=== PATIENT | male | born 1965 | race African-American/Black ===

== ENCOUNTER 2022-04-14 06:10 | Inpatient (IN) | payer MEDICAID, MEDICARE, OTHER ==
[2022-04-14] MEDS ORDERED: Magnesium 2 GM/50 ML BAG (IN WATER) ONE (06:27)
[2022-04-14] MEDS ORDERED: Albuterol Sulfate 1.25 MG/3 ML NEB ONE ×2 (06:31→06:37)
[2022-04-14] MEDS ORDERED: Albuterol Sulfate 2.5 mg/3 ml Neb ONE (06:52)
[2022-04-14 07:06] LABS: Actual Bicarbonate (HCO3a) 27.1 mEq/L (22-28); Analyzer IN Cardio ER; Base Excess (BEa) -2.7 mEq/L (-2.0 to +3.0); Calcium, Ionized (arterial) 1.24 mmol/L (1.12-1.30); Hemoglobin (Hb) 15.9 g/dL (14.0-18.0); Potassium - ABG Lab 4.11 mmol/L (3.70-5.30); pH, Arterial 7.21 (7.35-7.45)
[2022-04-14 07:08] LABS: Puncture Site RRA
[2022-04-14] MEDS ORDERED: Azithromycin 500 MG VIAL ONE (07:12)
[2022-04-14] MEDS ORDERED: cefTRIAXone\\ROCEPHIN 2 GM VIAL ONE (07:12)
[2022-04-14 07:49] LABS: SARS-CoV-2 NAA Rapid Test Not Detected (NotDetected)
[2022-04-14 08:47] LABS: Bilirubin Negative (Negative); Blood, Urine Negative (Negative); Clarity Clear (Clear); Glucose, Urine (Dipstick) Greater than 1000 mg/dL (Negative); Ketone, Urine Negative (Negative); Leukocyte Negative Leu/uL (Negative); Nitrite Negative (Negative); Protein, Urine (Dipstick) Negative (Neg-Trace); Specific Gravity, Urine 1.017 (1.002-1.036); Urobilinogen Normal mg/dL (Less than 2)
[2022-04-14 08:52] LABS: #Eosinphils 0.1 thou/uL (0.0-0.7); #Lymphocytes 1.6 thou/uL (1.20-3.40); #Monocytes 0.9 thou/uL (0.11-0.59); #Neutrophils 9.3 thou/uL (1.40-6.50); %Basophils 0.2 % (0.0-1.0); %Eosinophils 1.1 % (0.0-10.0); %Lymphocytes 13.5 % (21.0-51.0); %Monocytes 7.2 % (0.0-10.0); %Neutrophils 78.1 % (42.0-75.0); Mean Corpuscular HGB CONC 31.7 g/dL (32.0-36.0); Mean Corpuscular Hemoglobin 29.6 pg (27.0-31.0); Mean Corpuscular Volume 93.4 fl (78.0-98.0); Mean Platelet Volume 9.4 fL (7.4-10.4); Platelet Count 305 10x3/uL (130-400); RBC Distribution Width 12.6 % (11.5-14.5); Red Blood Cell (RBC) Count 5.41 mill/uL (4.70-6.10); White Blood Cell (WBC) Count 11.9 10x3/uL (4.8-10.8)
[2022-04-14] MEDS ORDERED: Ondansetron PF 4 MG/2 ML Vial IVP PRN (09:02)
[2022-04-14] MEDS ORDERED: Senokot S 8.6-50 MG TAB PO PRN (09:02)
[2022-04-14] MEDS ORDERED: Lorazepam 2 MG/ML VIAL IM PRN (10:11)
[2022-04-14] MEDS ORDERED: Ondansetron ODT 4 MG TAB PO PRN (10:11)
[2022-04-14] MEDS ORDERED: Lorazepam 1 MG TAB PO PRN (10:11)
[2022-04-14] MEDS ORDERED: Electrolyte Replacement Protocol FS SCH (10:15)
[2022-04-14 10:30] LABS: ALT (SGPT) 62 U/L (8-55); AST (SGOT) 46 U/L (5-34); Albumin 4.2 g/dL (3.5-5.0); Alkaline Phosphatase 77 U/L (40-110); Anion Gap 16 mmol/L (10-20); BUN (Urea Nitrogen) 13 mg/dL (8.4-25.7); Bilirubin, Total 0.2 mg/dL (0.2-1.2); Calc. Creatinine Clearance 0 mL/min (70-130); Calcium 9.3 mg/dL (7.8-10.44); Carbon Dioxide 23 mmol/L (22-29); Chloride 107 mmol/L (98-107); Estimated GFR 111; Globulin 2.9 g/dL (2.4-3.5); Glucose 200 mg/dL (70-105); Potassium 4.2 mmol/L (3.5-5.1); Protein, Total 7.1 g/dL (6.0-8.3); Sodium 142 mmol/L (136-145)
[2022-04-14 11:10] LABS: Bilirubin, Direct 0.1 mg/dL (0.1-0.3); Magnesium 2.9 mg/dL (1.6-2.6); Phosphorus 3.3 mg/dL (2.3-4.7)
[2022-04-14] MEDS ORDERED: Hydrochlorothiazide 25 MG TAB PO SCH (11:15)
[2022-04-14 11:25] LABS: #Lymphocytes 0.3 thou/uL (1.20-3.40); #Monocytes 0.2 thou/uL (0.11-0.59); #Neutrophils 11.2 thou/uL (1.40-6.50); %Basophils 0.1 % (0.0-1.0); %Eosinophils 0.2 % (0.0-10.0); %Lymphocytes 2.9 % (21.0-51.0); %Monocytes 1.8 % (0.0-10.0); %Neutrophils 95.1 % (42.0-75.0); Hemoglobin 15.9 g/dL (14.0-18.0); Mean Corpuscular Hemoglobin 28.4 pg (27.0-31.0); Mean Corpuscular Volume 94.7 fl (78.0-98.0); Mean Platelet Volume 6.8 fL (7.4-10.4); Platelet Count 257 10x3/uL (130-400); RBC Distribution Width 11.7 % (11.5-14.5); Red Blood Cell (RBC) Count 5.61 mill/uL (4.70-6.10); White Blood Cell (WBC) Count 11.8 10x3/uL (4.8-10.8)
[2022-04-14 11:40] LABS: Lactic Acid 3.8 mmol/L (0.5-2.2)
[2022-04-14] MEDS ORDERED: methylPREDNISolone Sod Succ/PF 125 MG/2 ML VIAL IVP SCH (12:45)
[2022-04-14] MEDS: Nicotine 21 MG PATCH TD SCH (12:51)
[2022-04-14] MEDS: Thiamine HCl 200 MG/2 ML VIAL SLOW IVP SCH (12:51)
[2022-04-14 12:59] LABS: Amphetamine Not Detected (NotDetected); Barbiturates Screen Not Detected (NotDetected); Benzodiazepine Screen Not Detected (NotDetected); Cocaine Metabolite Screen Not Detected (NotDetected); Methadone Not Detected (NotDetected); Methamphetamine Not Detected (NotDetected); Opiate Screen Detected (NotDetected); Oxycodone Screen Not Detected (NotDetected); Phencyclidine (PCP) Not Detected (NotDetected); THC/Cannabinoid Screen Detected (NotDetected); Tricyclic Screen Not Detected (NotDetected)
[2022-04-14 13:08] LABS: Actual Bicarbonate (HCO3v) 23 mEq/L (22-28); Base Excess -5.3 mEq/L (-2.0 to +3.0); Chloride (VBG) 111 mmol/L (98-106); Hemoglobin (Hb) 15.9 g/dL (13.1-17.2); Potassium (VBG) 4.68 mmol/L (3.70-5.30); Sodium 144.1 mmol/L (133-146); pH (venous) 7.22 (7.32-7.43)
[2022-04-14 14:54] LABS: Syphilis Antibody Nonreactive (Nonreactive); Syphilis Antibody Index 0.04 S/CO (<1.00 Non-Reactive)
[2022-04-14] MEDS: methylPREDNISolone Sod Succ/PF 125 MG/2 ML VIAL IVP SCH (17:09)
[2022-04-14 17:50] LABS: Hemoglobin A1c 6.2 % (4.0-6.0)
[2022-04-15] MEDS: methylPREDNISolone Sod Succ/PF 125 MG/2 ML VIAL IVP SCH ×4 (00:08→18:44)
[2022-04-15] MEDS ORDERED: Rocuronium Bromide 10 MG/ML (10ML VIAL) ONE (01:20)
[2022-04-15 01:41] LABS: Actual Bicarbonate (HCO3a) 37.8 mEq/L (22-28); Base Excess (BEa) 5.9 mEq/L (-2.0 to +3.0); Calcium, Ionized (arterial) 1.28 mmol/L (1.12-1.30); Carboxyhemoglobin (COHb) 1.3 gm% (0.0-3.0); O2 Tension (PaO2), arterial 74.5 mmHg (80.0-100.0); Potassium - ABG Lab 4.44 mmol/L (3.70-5.30); pH, Arterial 7.22 (7.35-7.45)
[2022-04-15 01:44] LABS: ALV-art Gradient 93.075 mmHg (0-20); CO2 Tension 94.1 mmHg (35.0-45.0); Puncture Site L BRA
[2022-04-15] MEDS ORDERED: Magnesium 2 GM/50 ML(in water) 2 GM in Premix Bag 1 BAG IVPB SCH (01:45)
[2022-04-15] MEDS ORDERED: Sodium Bicarb 50 MEQ/50 ML VIAL ONE (02:17)
[2022-04-15] MEDS ORDERED: Propofol 1,000 MG/100 ML VIAL IV ONE (02:28)
[2022-04-15] MEDS ORDERED: Sodium Bicarb 50 MEQ/50 ML VIAL IVP SCH ×2 (02:30→02:45)
[2022-04-15] MEDS ORDERED: Ventilator Sedation Protocol 1 EACH FS SCH (02:35)
[2022-04-15] MEDS ORDERED: Rocuronium Bromide 10 MG/ML (10ML VIAL) IVP SCH (02:45)
[2022-04-15 02:49] LABS: #Lymphocytes 0.6 thou/uL (1.20-3.40); #Monocytes 0.6 thou/uL (0.11-0.59); #Neutrophils 9.6 thou/uL (1.40-6.50); %Basophils 0.1 % (0.0-1.0); %Eosinophils 0.2 % (0.0-10.0); %Lymphocytes 5.6 % (21.0-51.0); %Monocytes 5.2 % (0.0-10.0); Hemoglobin 15.6 g/dL (14.0-18.0); Mean Corpuscular HGB CONC 31.1 g/dL (32.0-36.0); Mean Corpuscular Hemoglobin 29.5 pg (27.0-31.0); Mean Corpuscular Volume 94.7 fl (78.0-98.0); Platelet Count 238 10x3/uL (130-400); RBC Distribution Width 11.7 % (11.5-14.5); Red Blood Cell (RBC) Count 5.31 mill/uL (4.70-6.10); White Blood Cell (WBC) Count 10.7 10x3/uL (4.8-10.8)
[2022-04-15 03:23] LABS: Actual Bicarbonate (HCO3a) 37.7 mEq/L (22-28); Base Excess (BEa) 8.6 mEq/L (-2.0 to +3.0); Calcium, Ionized (arterial) 1.23 mmol/L (1.12-1.30); Carboxyhemoglobin (COHb) 1.1 gm% (0.0-3.0); Hemoglobin (Hb) 15.7 g/dL (14.0-18.0); Potassium - ABG Lab 4.08 mmol/L (3.70-5.30); pH, Arterial 7.34 (7.35-7.45)
[2022-04-15 03:24] LABS: ALT (SGPT) 62 U/L (8-55); AST (SGOT) 41 U/L (5-34); Albumin 4.3 g/dL (3.5-5.0); Alkaline Phosphatase 80 U/L (40-110); Anion Gap 17 mmol/L (10-20); BUN (Urea Nitrogen) 10 mg/dL (8.4-25.7); Bilirubin, Total 0.4 mg/dL (0.2-1.2); Calc. Creatinine Clearance 144 mL/min (70-130); Carbon Dioxide 29 mmol/L (22-29); Chloride 101 mmol/L (98-107); Estimated GFR 112; Globulin 3.2 g/dL (2.4-3.5); Glucose 144 mg/dL (70-105); Potassium 4.6 mmol/L (3.5-5.1); Protein, Total 7.5 g/dL (6.0-8.3); Sodium 142 mmol/L (136-145)
[2022-04-15 03:26] LABS: CO2 Tension 71.6 mmHg (35.0-45.0)
[2022-04-15] MEDS: Fentanyl CADD 100 ML IV SCH ×2 (03:27→17:48)
[2022-04-15 03:28] LABS: Puncture Site LRA
[2022-04-15] MEDS ORDERED: Propofol BOLUS 1,000 MG/100 ML VIAL IV PRN (03:30)
[2022-04-15] MEDS ORDERED: DISCONTINUE PREVIOUS NARCOTIC PAIN MEDICATIONS AND BENZODIAZEPINES FS SCH (03:30)
[2022-04-15] MEDS ORDERED: Fentanyl BOLUS 250 ML IVPB PRN (03:30)
[2022-04-15] MEDS ORDERED: Morphine 4 MG/ML VIAL SLOW IVP PRN (03:30)
[2022-04-15] MEDS: cefTRIAXone\\ROCEPHIN 1 GM in Sodium Chloride 0.9% 100 ML IVPB SCH (06:42)
[2022-04-15] MEDS ORDERED: Lactated Ringer's 500 ML IV SCH ×2 (08:00→14:00)
[2022-04-15] MEDS: Multivit, Therapeutic 1 TAB PO SCH (08:58)
[2022-04-15] MEDS: Folic Acid 1 MG TAB PO SCH (08:58)
[2022-04-15] MEDS: Pantoprazole 40 MG VIAL IVP SCH (08:59)
[2022-04-15] MEDS: Enoxaparin Sodium 40 MG/0.4 ML SYRINGE SC SCH (08:59)
[2022-04-15] MEDS ORDERED: FLU VACC QS2022-23(6MOS UP)/PF 60 MCG/0.5 ML SYRINGE IM ONE (09:00)
[2022-04-15] MEDS ORDERED: predniSONE 20 MG TAB PO SCH (09:00)
[2022-04-15] MEDS ORDERED: Lorazepam 1 MG TAB PO PRN (10:11)
[2022-04-15] MEDS: Hydrochlorothiazide 25 MG TAB PO SCH (10:21)
[2022-04-15 11:07] LABS: Actual Bicarbonate (HCO3a) 37.6 mEq/L (22-28); Base Excess (BEa) 9.9 mEq/L (-2.0 to +3.0); Calcium, Ionized (arterial) 1.23 mmol/L (1.12-1.30); Carboxyhemoglobin (COHb) 1.2 gm% (0.0-3.0); Hemoglobin (Hb) 15.5 g/dL (14.0-18.0)
[2022-04-15 11:14] LABS: CO2 Tension 62.8 mmHg (35.0-45.0)
[2022-04-15 11:15] LABS: O2 Tension (PaO2), arterial 58.4 mmHg (80.0-100.0); Puncture Site RRA
[2022-04-15] MEDS: Dextrose 5%-Lactated Ringers 1,000 ML IV SCH ×3 (11:59→22:10)
[2022-04-15] MEDS: Azithromycin 500 MG in Sodium Chloride 0.9% 250 ML 250 ML IVPB SCH (12:04)
[2022-04-15] MEDS: Thiamine HCl 200 MG/2 ML VIAL SLOW IVP SCH (12:04)
[2022-04-15] MEDS: Nicotine 21 MG PATCH TD SCH (12:05)
[2022-04-15] MEDS: Propofol 1,000 MG/100 ML VIAL IV PRN ×2 (12:18→21:49)
[2022-04-15] MEDS ORDERED: Hydrochlorothiazide 25 MG TAB PO SCH (14:00)
[2022-04-15] MEDS ORDERED: Fentanyl CADD 100 ML ONE (17:46)
[2022-04-15] MEDS: Mometasone 100 MCG/Formoterol 5 MCG 120 PUFF INHALER INH SCH (18:11)
[2022-04-15] MEDS: Midazolam HCl 2 mg/2 ml Vial SLOW IVP PRN ×2 (18:43→23:40)
[2022-04-15] MEDS: methylPREDNISolone Sod Succ 40 MG VIAL IVP SCH ×2 (18:43→23:59)
[2022-04-16 05:11] LABS: #Lymphocytes 0.5 thou/uL (1.20-3.40); #Monocytes 0.6 thou/uL (0.11-0.59); #Neutrophils 7.2 thou/uL (1.40-6.50); %Eosinophils 0.2 % (0.0-10.0); %Lymphocytes 5.7 % (21.0-51.0); %Monocytes 7.5 % (0.0-10.0); %Neutrophils 86.7 % (42.0-75.0); Hemoglobin 13.7 g/dL (14.0-18.0); Mean Corpuscular HGB CONC 31.4 g/dL (32.0-36.0); Mean Corpuscular Hemoglobin 29.5 pg (27.0-31.0); Mean Corpuscular Volume 94.1 fl (78.0-98.0); Mean Platelet Volume 7.2 fL (7.4-10.4); Platelet Count 209 10x3/uL (130-400); RBC Distribution Width 11.8 % (11.5-14.5); Red Blood Cell (RBC) Count 4.63 mill/uL (4.70-6.10); White Blood Cell (WBC) Count 8.3 10x3/uL (4.8-10.8)
[2022-04-16 05:28] LABS: ALT (SGPT) 42 U/L (8-55); AST (SGOT) 16 U/L (5-34); Albumin 3.7 g/dL (3.5-5.0); Alkaline Phosphatase 61 U/L (40-110); Anion Gap 7 mmol/L (10-20); BUN (Urea Nitrogen) 16 mg/dL (8.4-25.7); Bilirubin, Total 0.3 mg/dL (0.2-1.2); Calc. Creatinine Clearance 152 mL/min (70-130); Calcium 9.5 mg/dL (7.8-10.44); Carbon Dioxide 37 mmol/L (22-29); Chloride 98 mmol/L (98-107); Estimated GFR 118; Globulin 2.5 g/dL (2.4-3.5); Glucose 178 mg/dL (70-105); Potassium 4.2 mmol/L (3.5-5.1); Protein, Total 6.2 g/dL (6.0-8.3); Sodium 138 mmol/L (136-145)
[2022-04-16] MEDS: cefTRIAXone\\ROCEPHIN 1 GM in Sodium Chloride 0.9% 100 ML IVPB SCH (06:08)
[2022-04-16] MEDS: methylPREDNISolone Sod Succ 40 MG VIAL IVP SCH ×3 (06:08→18:11)
[2022-04-16] MEDS: Mometasone 100 MCG/Formoterol 5 MCG 120 PUFF INHALER INH SCH ×2 (07:25→18:13)
[2022-04-16] MEDS ORDERED: Fentanyl CADD 100 ML ONE (08:26)
[2022-04-16] MEDS: Propofol 1,000 MG/100 ML VIAL IV PRN ×2 (08:33→18:11)
[2022-04-16] MEDS: Dextrose 5%-Lactated Ringers 1,000 ML IV SCH (08:33)
[2022-04-16] MEDS: Fentanyl CADD 100 ML IV SCH (08:34)
[2022-04-16] MEDS: Azithromycin 500 MG in Sodium Chloride 0.9% 250 ML 250 ML IVPB SCH (09:49)
[2022-04-16] MEDS: Folic Acid 1 MG TAB PO SCH (09:50)
[2022-04-16] MEDS: Enoxaparin Sodium 40 MG/0.4 ML SYRINGE SC SCH (09:50)
[2022-04-16] MEDS: Multivit, Therapeutic 1 TAB PO SCH (09:50)
[2022-04-16] MEDS: Hydrochlorothiazide 25 MG TAB PO SCH (09:51)
[2022-04-16] MEDS: Pantoprazole 40 MG VIAL IVP SCH (09:51)
[2022-04-16] MEDS ORDERED: Lorazepam 1 MG TAB PO PRN (10:11)
[2022-04-16] MEDS ORDERED: cefTRIAXone\\ROCEPHIN 1 GM in Sodium Chloride 0.9% 100 ML IVPB SCH (11:00)
[2022-04-16] MEDS ORDERED: Amlodipine 5 MG TAB PO SCH (12:15)
[2022-04-16] MEDS: Thiamine HCl 200 MG/2 ML VIAL SLOW IVP SCH (12:59)
[2022-04-16] MEDS: Nicotine 21 MG PATCH TD SCH (12:59)
[2022-04-16] MEDS ORDERED: Dextrose 5%-Lactated Ringers 1,000 ML IV SCH (17:42)
[2022-04-17] MEDS: Propofol 1,000 MG/100 ML VIAL IV PRN ×4 (01:59→20:10)
[2022-04-17] MEDS: methylPREDNISolone Sod Succ 40 MG VIAL IVP SCH ×4 (02:00→18:19)
[2022-04-17 04:09] LABS: #Lymphocytes 0.5 thou/uL (1.20-3.40); #Monocytes 0.5 thou/uL (0.11-0.59); #Neutrophils 6.3 thou/uL (1.40-6.50); %Eosinophils 0.3 % (0.0-10.0); %Lymphocytes 6.3 % (21.0-51.0); %Monocytes 6.9 % (0.0-10.0); %Neutrophils 86.4 % (42.0-75.0); Hemoglobin 12.9 g/dL (14.0-18.0); Mean Corpuscular HGB CONC 31.9 g/dL (32.0-36.0); Mean Corpuscular Volume 94.2 fl (78.0-98.0); Mean Platelet Volume 7.1 fL (7.4-10.4); Platelet Count 192 10x3/uL (130-400); RBC Distribution Width 11.4 % (11.5-14.5); Red Blood Cell (RBC) Count 4.28 mill/uL (4.70-6.10); White Blood Cell (WBC) Count 7.2 10x3/uL (4.8-10.8)
[2022-04-17 04:34] LABS: ALT (SGPT) 33 U/L (8-55); AST (SGOT) 12 U/L (5-34); Albumin 3.1 g/dL (3.5-5.0); Alkaline Phosphatase 50 U/L (40-110); BUN (Urea Nitrogen) 12 mg/dL (8.4-25.7); Bilirubin, Total 0.2 mg/dL (0.2-1.2); Calc. Creatinine Clearance 157 mL/min (70-130); Calcium 9.3 mg/dL (7.8-10.44); Estimated GFR 118; Globulin 2.1 g/dL (2.4-3.5); Glucose 194 mg/dL (70-105); Protein, Total 5.2 g/dL (6.0-8.3)
[2022-04-17 04:43] LABS: Anion Gap 13 mmol/L (10-20); Carbon Dioxide 33 mmol/L (22-29); Chloride 99 mmol/L (98-107); Sodium 141 mmol/L (136-145)
[2022-04-17] MEDS ORDERED: Dextrose 50% Abboject 50 ML SYRINGE SLOW IVP PRN (06:45)
[2022-04-17] MEDS ORDERED: HumaLOG 300 UNITS/3 ML VIAL SC PRN (06:45)
[2022-04-17] MEDS: Fentanyl CADD 100 ML IV SCH (06:45)
[2022-04-17] MEDS ORDERED: Dextrose 5% in Water 1,000 ML IV PRN (06:45)
[2022-04-17] MEDS: cefTRIAXone\\ROCEPHIN 1 GM in Sodium Chloride 0.9% 100 ML IVPB SCH (06:46)
[2022-04-17] MEDS: Mometasone 100 MCG/Formoterol 5 MCG 120 PUFF INHALER INH SCH ×2 (06:52→18:27)
[2022-04-17] MEDS: HumaLOG 300 UNITS/3 ML VIAL SC PRN ×2 (08:41→21:22)
[2022-04-17] MEDS: Albuterol Sulfate 2.5 mg/3 ml Neb NEB SCH ×9 (09:00→23:23)
[2022-04-17] MEDS ORDERED: VANCOMYCIN 1.25 GM/250 ML BAG IVPB SCH (09:00)
[2022-04-17] MEDS ORDERED: VANCOMYCIN IVPB PRN (09:07)
[2022-04-17] MEDS ORDERED: Furosemide 20 MG/2 ML VIAL SLOW IVP SCH (09:15)
[2022-04-17] MEDS ORDERED: Lorazepam 0.5 MG TAB PO PRN (10:11)
[2022-04-17] MEDS: Vancomycin 1.5 GRAM/300 ML BAG 1.5 GM in Premix Bag 1 BAG IVPB SCH ×2 (11:40→21:24)
[2022-04-17] MEDS: Pantoprazole 40 MG VIAL IVP SCH (11:43)
[2022-04-17] MEDS: Amlodipine 5 MG TAB PO SCH (11:44)
[2022-04-17] MEDS: Multivit, Therapeutic 1 TAB PO SCH (11:44)
[2022-04-17] MEDS: Enoxaparin Sodium 40 MG/0.4 ML SYRINGE SC SCH (11:51)
[2022-04-17] MEDS: Hydrochlorothiazide 25 MG TAB PO SCH (11:51)
[2022-04-17] MEDS: Folic Acid 1 MG TAB PO SCH (11:51)
[2022-04-17] MEDS: Thiamine 100 MG TAB PO SCH (11:52)
[2022-04-17] MEDS: Nicotine 21 MG PATCH TD SCH (11:54)
[2022-04-17] MEDS: Ipratropium Bromide 2.5 ml Neb NEB SCH ×3 (12:47→23:23)
[2022-04-17] MEDS: Azithromycin 500 MG in Sodium Chloride 0.9% 250 ML 250 ML IVPB SCH (13:03)
[2022-04-18] MEDS: methylPREDNISolone Sod Succ 40 MG VIAL IVP SCH ×4 (00:08→21:49)
[2022-04-18] MEDS: Fentanyl CADD 100 ML IV SCH (00:08)
[2022-04-18] MEDS: Albuterol Sulfate 2.5 mg/3 ml Neb NEB SCH ×11 (02:00→23:16)
[2022-04-18] MEDS: Propofol 1,000 MG/100 ML VIAL IV PRN (02:01)
[2022-04-18] MEDS: HumaLOG 300 UNITS/3 ML VIAL SC PRN (03:43)
[2022-04-18 04:13] LABS: #Lymphocytes 0.3 thou/uL (1.20-3.40); #Monocytes 0.5 thou/uL (0.11-0.59); #Neutrophils 6.5 thou/uL (1.40-6.50); %Eosinophils 0.4 % (0.0-10.0); %Lymphocytes 4.2 % (21.0-51.0); %Monocytes 7.3 % (0.0-10.0); %Neutrophils 88.1 % (42.0-75.0); Mean Corpuscular HGB CONC 30.4 g/dL (32.0-36.0); Mean Corpuscular Hemoglobin 29.1 pg (27.0-31.0); Mean Corpuscular Volume 95.6 fl (78.0-98.0); Mean Platelet Volume 7.3 fL (7.4-10.4); Platelet Count 207 10x3/uL (130-400); RBC Distribution Width 11.3 % (11.5-14.5); Red Blood Cell (RBC) Count 4.47 mill/uL (4.70-6.10); White Blood Cell (WBC) Count 7.4 10x3/uL (4.8-10.8)
[2022-04-18 04:34] LABS: ALT (SGPT) 61 U/L (8-55); AST (SGOT) 28 U/L (5-34); Alkaline Phosphatase 60 U/L (40-110); BUN (Urea Nitrogen) 19 mg/dL (8.4-25.7); Bilirubin, Total 0.2 mg/dL (0.2-1.2); Calc. Creatinine Clearance 165 mL/min (70-130); Calcium 9.2 mg/dL (7.8-10.44); Estimated GFR 117; Globulin 2.2 g/dL (2.4-3.5); Glucose 188 mg/dL (70-105); Protein, Total 5.2 g/dL (6.0-8.3)
[2022-04-18 04:44] LABS: Anion Gap 13 mmol/L (10-20); Carbon Dioxide 37 mmol/L (22-29); Chloride 93 mmol/L (98-107); Potassium 4.2 mmol/L (3.5-5.1); Sodium 139 mmol/L (136-145)
[2022-04-18] MEDS: cefTRIAXone\\ROCEPHIN 1 GM in Sodium Chloride 0.9% 100 ML IVPB SCH (05:08)
[2022-04-18] MEDS: Mometasone 100 MCG/Formoterol 5 MCG 120 PUFF INHALER INH SCH ×2 (07:14→18:35)
[2022-04-18] MEDS: Ipratropium Bromide 2.5 ml Neb NEB SCH (07:15)
[2022-04-18] MEDS ORDERED: Furosemide 20 MG/2 ML VIAL SLOW IVP SCH (08:15)
[2022-04-18] MEDS ORDERED: Labetalol HCl 100 MG/20 ML VIAL ONE (08:53)
[2022-04-18] MEDS: Labetalol HCl 100 MG/20 ML VIAL SLOW IVP PRN (08:55)
[2022-04-18] MEDS: Amlodipine 5 MG TAB PO SCH (09:26)
[2022-04-18] MEDS: Folic Acid 1 MG TAB PO SCH (09:26)
[2022-04-18] MEDS: Hydrochlorothiazide 25 MG TAB PO SCH (09:27)
[2022-04-18] MEDS: Multivit, Therapeutic 1 TAB PO SCH (09:27)
[2022-04-18] MEDS: Pantoprazole 40 MG VIAL IVP SCH (09:27)
[2022-04-18] MEDS: Enoxaparin Sodium 40 MG/0.4 ML SYRINGE SC SCH (09:35)
[2022-04-18] MEDS: Vancomycin 1.5 GRAM/300 ML BAG 1.5 GM in Premix Bag 1 BAG IVPB SCH (09:56)
[2022-04-18 10:45] LABS: Base Excess 16.9 mEq/L (-2.0 to +3.0); Calcium, Ionized (venous) 1.27 mmol/L (1.16-1.32); Chloride (VBG) 90 mmol/L (98-106); Hemoglobin (Hb) 14.8 g/dL (13.1-17.2); Potassium (VBG) 4.52 mmol/L (3.70-5.30); Sodium 136.6 mmol/L (133-146); pH (venous) 7.38 (7.32-7.43)
[2022-04-18 11:28] LABS: Actual Bicarbonate (HCO3v) 47 mEq/L (22-28)
[2022-04-18] MEDS: Nicotine 21 MG PATCH TD SCH (12:26)
[2022-04-18] MEDS: Thiamine 100 MG TAB PO SCH (13:47)
[2022-04-18] MEDS ORDERED: NOREPINEPHRINE 8 MG/250 ML-D5W 250 ML ONE (19:36)
[2022-04-18 20:42] LABS: Vancomycin, Trough 10.7 ug/mL
[2022-04-18] MEDS: VANCOMYCIN 1.25 GM/250 ML BAG 1.25 GM in Premix Bag 1 BAG IVPB SCH (21:41)
[2022-04-19] MEDS: Labetalol HCl 100 MG/20 ML VIAL SLOW IVP PRN ×2 (00:30→08:40)
[2022-04-19] MEDS ORDERED: Rocuronium Bromide 10 MG/ML (10ML VIAL) ONE (00:46)
[2022-04-19] MEDS ORDERED: Sodium Bicarb 50 MEQ/50 ML Abboject 8.4% SYRINGE ONE (00:46)
[2022-04-19] MEDS ORDERED: EPINEPHrine 1 MG/10 ML Abboject SYRINGE ONE (00:46)
[2022-04-19 01:15] LABS: #Basophils 0.1 thou/uL (0.0-0.2); #Lymphocytes 0.7 thou/uL (1.20-3.40); #Monocytes 0.9 thou/uL (0.11-0.59); #Neutrophils 8.2 thou/uL (1.40-6.50); %Basophils 0.6 % (0.0-1.0); %Eosinophils 0.4 % (0.0-10.0); %Lymphocytes 7.6 % (21.0-51.0); %Monocytes 8.6 % (0.0-10.0); %Neutrophils 82.9 % (42.0-75.0); Hemoglobin 14.5 g/dL (14.0-18.0); Mean Corpuscular HGB CONC 30.8 g/dL (32.0-36.0); Mean Corpuscular Hemoglobin 29.2 pg (27.0-31.0); Mean Corpuscular Volume 94.8 fl (78.0-98.0); Mean Platelet Volume 7.2 fL (7.4-10.4); Platelet Count 222 10x3/uL (130-400); RBC Distribution Width 11.4 % (11.5-14.5); Red Blood Cell (RBC) Count 4.96 mill/uL (4.70-6.10); White Blood Cell (WBC) Count 9.8 10x3/uL (4.8-10.8)
[2022-04-19] MEDS: Albuterol Sulfate 2.5 mg/3 ml Neb NEB SCH ×12 (01:29→23:24)
[2022-04-19] MEDS ORDERED: Midazolam HCl 2 mg/2 ml Vial SLOW IVP PRN (01:35)
[2022-04-19 01:39] LABS: ALT (SGPT) 220 U/L (8-55); AST (SGOT) 121 U/L (5-34); Albumin 3.2 g/dL (3.5-5.0); Alkaline Phosphatase 72 U/L (40-110); Anion Gap 20 mmol/L (10-20); BUN (Urea Nitrogen) 19 mg/dL (8.4-25.7); Bilirubin, Total 0.4 mg/dL (0.2-1.2); Calc. Creatinine Clearance 147 mL/min (70-130); Calcium 9.4 mg/dL (7.8-10.44); Carbon Dioxide 29 mmol/L (22-29); Chloride 91 mmol/L (98-107); Estimated GFR 113; Globulin 2.7 g/dL (2.4-3.5); Glucose 205 mg/dL (70-105); Magnesium 2.5 mg/dL (1.6-2.6); Phosphorus 5.4 mg/dL (2.3-4.7); Potassium 4.5 mmol/L (3.5-5.1); Protein, Total 5.9 g/dL (6.0-8.3); Sodium 135 mmol/L (136-145)
[2022-04-19 01:40] LABS: Troponin I 0.011 ng/mL (< 0.028)
[2022-04-19] MEDS: Vancomycin 1.5 GRAM/300 ML BAG 1.5 GM in Premix Bag 1 BAG IVPB SCH (01:42)
[2022-04-19] MEDS ORDERED: Propofol BOLUS 1,000 MG/100 ML VIAL IV PRN (01:45)
[2022-04-19] MEDS ORDERED: Morphine 4 MG/ML VIAL SLOW IVP PRN (01:45)
[2022-04-19] MEDS ORDERED: DISCONTINUE PREVIOUS NARCOTIC PAIN MEDICATIONS AND BENZODIAZEPINES FS SCH (01:45)
[2022-04-19] MEDS ORDERED: Fentanyl BOLUS 250 ML IVPB PRN (01:45)
[2022-04-19 01:50] LABS: Actual Bicarbonate (HCO3a) 42.5 mEq/L (22-28); Calcium, Ionized (arterial) 1.29 mmol/L (1.12-1.30); Carboxyhemoglobin (COHb) 0.8 gm% (0.0-3.0); Hemoglobin (Hb) 14.8 g/dL (14.0-18.0); O2 Tension (PaO2), arterial 125.7 mmHg (80.0-100.0); Potassium - ABG Lab 4.33 mmol/L (3.70-5.30); pH, Arterial 7.35 (7.35-7.45)
[2022-04-19 01:52] LABS: CO2 Tension 78.2 mmHg (35.0-45.0); Puncture Site R RAD
[2022-04-19] MEDS: Propofol 1,000 MG/100 ML VIAL IV PRN ×3 (01:54→23:26)
[2022-04-19] MEDS: Fentanyl CADD 100 ML IV SCH ×2 (02:02→20:27)
[2022-04-19] MEDS ORDERED: Sodium Chloride 0.9% 500 ML IV SCH (03:30)
[2022-04-19 05:24] LABS: #Lymphocytes 0.6 thou/uL (1.20-3.40); #Neutrophils 7.2 thou/uL (1.40-6.50); %Basophils 0.1 % (0.0-1.0); %Eosinophils 0.4 % (0.0-10.0); %Lymphocytes 7.2 % (21.0-51.0); %Monocytes 10.8 % (0.0-10.0); %Neutrophils 81.5 % (42.0-75.0); Hemoglobin 12.9 g/dL (14.0-18.0); Mean Corpuscular HGB CONC 30.5 g/dL (32.0-36.0); Mean Corpuscular Hemoglobin 28.9 pg (27.0-31.0); Mean Corpuscular Volume 94.9 fl (78.0-98.0); Mean Platelet Volume 7.1 fL (7.4-10.4); Platelet Count 188 10x3/uL (130-400); RBC Distribution Width 11.3 % (11.5-14.5); Red Blood Cell (RBC) Count 4.46 mill/uL (4.70-6.10); White Blood Cell (WBC) Count 8.9 10x3/uL (4.8-10.8)
[2022-04-19 05:51] LABS: ALT (SGPT) 240 U/L (8-55); AST (SGOT) 126 U/L (5-34); Alkaline Phosphatase 63 U/L (40-110); BUN (Urea Nitrogen) 20 mg/dL (8.4-25.7); Bilirubin, Total 0.5 mg/dL (0.2-1.2); Calc. Creatinine Clearance 155 mL/min (70-130); Calcium 9.3 mg/dL (7.8-10.44); Estimated GFR 116; Globulin 2.2 g/dL (2.4-3.5); Glucose 149 mg/dL (70-105); Protein, Total 5.2 g/dL (6.0-8.3)
[2022-04-19 06:01] LABS: Anion Gap 15 mmol/L (10-20); Carbon Dioxide 35 mmol/L (22-29); Chloride 93 mmol/L (98-107); Potassium 4.1 mmol/L (3.5-5.1); Sodium 139 mmol/L (136-145)
[2022-04-19] MEDS: methylPREDNISolone Sod Succ 40 MG VIAL IVP SCH ×3 (06:37→21:59)
[2022-04-19] MEDS: cefTRIAXone\\ROCEPHIN 1 GM in Sodium Chloride 0.9% 100 ML IVPB SCH (06:37)
[2022-04-19] MEDS: VANCOMYCIN 1.25 GM/250 ML BAG 1.25 GM in Premix Bag 1 BAG IVPB SCH ×3 (06:37→22:19)
[2022-04-19] MEDS: Mometasone 100 MCG/Formoterol 5 MCG 120 PUFF INHALER INH SCH ×2 (07:30→18:31)
[2022-04-19] MEDS: Amlodipine 5 MG TAB PO SCH (08:01)
[2022-04-19] MEDS: Enoxaparin Sodium 40 MG/0.4 ML SYRINGE SC SCH (08:01)
[2022-04-19] MEDS: Pantoprazole 40 MG VIAL IVP SCH (08:01)
[2022-04-19] MEDS: Hydrochlorothiazide 25 MG TAB PO SCH (08:01)
[2022-04-19] MEDS: Multivit, Therapeutic 1 TAB PO SCH (08:01)
[2022-04-19] MEDS: Folic Acid 1 MG TAB PO SCH (08:02)
[2022-04-19] MEDS: Nicotine 21 MG PATCH TD SCH (14:31)
[2022-04-19] MEDS: Thiamine 100 MG TAB PO SCH (14:31)
[2022-04-19 21:24] LABS: Vancomycin, Trough 17.8 ug/mL
[2022-04-20] MEDS: Albuterol Sulfate 2.5 mg/3 ml Neb NEB SCH ×7 (01:10→13:18)
[2022-04-20 04:42] LABS: #Lymphocytes 0.6 thou/uL (1.20-3.40); #Monocytes 0.9 thou/uL (0.11-0.59); #Neutrophils 7.1 thou/uL (1.40-6.50); %Eosinophils 0.3 % (0.0-10.0); %Lymphocytes 6.4 % (21.0-51.0); %Neutrophils 83.3 % (42.0-75.0); Mean Corpuscular HGB CONC 29.6 g/dL (32.0-36.0); Mean Corpuscular Hemoglobin 27.8 pg (27.0-31.0); Mean Platelet Volume 7.4 fL (7.4-10.4); Platelet Count 217 10x3/uL (130-400); RBC Distribution Width 11.4 % (11.5-14.5); Red Blood Cell (RBC) Count 4.69 mill/uL (4.70-6.10); White Blood Cell (WBC) Count 8.5 10x3/uL (4.8-10.8)
[2022-04-20 05:00] LABS: ALT (SGPT) 181 U/L (8-55); AST (SGOT) 37 U/L (5-34); Albumin 3.3 g/dL (3.5-5.0); Alkaline Phosphatase 63 U/L (40-110); BUN (Urea Nitrogen) 20 mg/dL (8.4-25.7); Bilirubin, Total 0.4 mg/dL (0.2-1.2); Calc. Creatinine Clearance 167 mL/min (70-130); Calcium 9.7 mg/dL (7.8-10.44); Estimated GFR 118; Globulin 2.5 g/dL (2.4-3.5); Glucose 140 mg/dL (70-105); Protein, Total 5.8 g/dL (6.0-8.3)
[2022-04-20 05:09] LABS: Anion Gap 16 mmol/L (10-20); Carbon Dioxide 35 mmol/L (22-29); Chloride 93 mmol/L (98-107); Potassium 4.7 mmol/L (3.5-5.1); Sodium 139 mmol/L (136-145)
[2022-04-20] MEDS: methylPREDNISolone Sod Succ 40 MG VIAL IVP SCH (05:49)
[2022-04-20] MEDS: cefTRIAXone\\ROCEPHIN 1 GM in Sodium Chloride 0.9% 100 ML IVPB SCH (05:49)
[2022-04-20] MEDS: VANCOMYCIN 1.25 GM/250 ML BAG 1.25 GM in Premix Bag 1 BAG IVPB SCH (06:16)
[2022-04-20 07:05] LABS: Actual Bicarbonate (HCO3a) 42.6 mEq/L (22-28); Calcium, Ionized (arterial) 1.28 mmol/L (1.12-1.30); Carboxyhemoglobin (COHb) 0.8 gm% (0.0-3.0); Hemoglobin (Hb) 13.5 g/dL (14.0-18.0); O2 Tension (PaO2), arterial 81.5 mmHg (80.0-100.0); Potassium - ABG Lab 4.22 mmol/L (3.70-5.30); pH, Arterial 7.43 (7.35-7.45)
[2022-04-20 07:16] LABS: CO2 Tension 66.4 mmHg (35.0-45.0); Puncture Site RRA
[2022-04-20] MEDS: Mometasone 100 MCG/Formoterol 5 MCG 120 PUFF INHALER INH SCH ×2 (07:17→19:24)
[2022-04-20] MEDS: Hydrochlorothiazide 25 MG TAB PO SCH (09:22)
[2022-04-20] MEDS: Multivit, Therapeutic 1 TAB PO SCH (09:22)
[2022-04-20] MEDS: Amlodipine 5 MG TAB PO SCH (09:22)
[2022-04-20] MEDS: Pantoprazole 40 MG VIAL IVP SCH (09:24)
[2022-04-20] MEDS: Enoxaparin Sodium 40 MG/0.4 ML SYRINGE SC SCH (09:24)
[2022-04-20] MEDS: Propofol 1,000 MG/100 ML VIAL IV PRN (09:24)
[2022-04-20] MEDS: Folic Acid 1 MG TAB PO SCH (09:24)
[2022-04-20] MEDS: Labetalol HCl 100 MG/20 ML VIAL SLOW IVP PRN ×2 (11:02→18:29)
[2022-04-20] MEDS: Thiamine 100 MG TAB PO SCH (13:42)
[2022-04-20] MEDS: Nicotine 21 MG PATCH TD SCH (13:43)
[2022-04-20] MEDS ORDERED: Amlodipine 5 MG TAB PO SCH (14:15)
[2022-04-20] MEDS ORDERED: methylPREDNISolone Sod Succ 40 MG VIAL IVP SCH (21:00)
[2022-04-21] MEDS: Labetalol HCl 100 MG/20 ML VIAL SLOW IVP PRN (00:20)
[2022-04-21 05:26] LABS: #Lymphocytes 0.7 thou/uL (1.20-3.40); #Monocytes 0.8 thou/uL (0.11-0.59); #Neutrophils 6.4 thou/uL (1.40-6.50); %Eosinophils 0.4 % (0.0-10.0); %Lymphocytes 8.7 % (21.0-51.0); %Monocytes 9.8 % (0.0-10.0); Hemoglobin 13.5 g/dL (14.0-18.0); Mean Corpuscular HGB CONC 31.7 g/dL (32.0-36.0); Mean Corpuscular Hemoglobin 29.5 pg (27.0-31.0); Mean Platelet Volume 7.3 fL (7.4-10.4); Platelet Count 197 10x3/uL (130-400); RBC Distribution Width 11.2 % (11.5-14.5); Red Blood Cell (RBC) Count 4.56 mill/uL (4.70-6.10); White Blood Cell (WBC) Count 7.9 10x3/uL (4.8-10.8)
[2022-04-21 05:44] LABS: ALT (SGPT) 168 U/L (8-55); AST (SGOT) 58 U/L (5-34); Albumin 3.1 g/dL (3.5-5.0); Alkaline Phosphatase 77 U/L (40-110); BUN (Urea Nitrogen) 21 mg/dL (8.4-25.7); Bilirubin, Total 0.8 mg/dL (0.2-1.2); Calc. Creatinine Clearance 160 mL/min (70-130); Calcium 9.7 mg/dL (7.8-10.44); Estimated GFR 116; Globulin 2.5 g/dL (2.4-3.5); Glucose 128 mg/dL (70-105); Protein, Total 5.6 g/dL (6.0-8.3)
[2022-04-21 05:54] LABS: Anion Gap 15 mmol/L (10-20); Carbon Dioxide 35 mmol/L (22-29); Chloride 95 mmol/L (98-107); Potassium 4.5 mmol/L (3.5-5.1); Sodium 140 mmol/L (136-145)
[2022-04-21] MEDS: Mometasone 100 MCG/Formoterol 5 MCG 120 PUFF INHALER INH SCH ×2 (06:36→18:52)
[2022-04-21] MEDS: Amlodipine 10 MG TAB PO SCH (08:54)
[2022-04-21] MEDS: methylPREDNISolone Sod Succ 40 MG VIAL IVP SCH ×2 (08:54→21:12)
[2022-04-21] MEDS: Folic Acid 1 MG TAB PO SCH (08:54)
[2022-04-21] MEDS: Enoxaparin Sodium 40 MG/0.4 ML SYRINGE SC SCH (08:54)
[2022-04-21] MEDS: Hydrochlorothiazide 25 MG TAB PO SCH (08:54)
[2022-04-21] MEDS: Multivit, Therapeutic 1 TAB PO SCH (08:54)
[2022-04-21] MEDS: Nicotine 21 MG PATCH TD SCH (12:29)
[2022-04-21] MEDS: Thiamine 100 MG TAB PO SCH (12:30)
[2022-04-21 13:55] VITALS: BMI 24.4
[2022-04-22 04:12] LABS: #Eosinphils 0.1 thou/uL (0.0-0.7); #Lymphocytes 1.1 thou/uL (1.20-3.40); #Monocytes 1.2 thou/uL (0.11-0.59); #Neutrophils 8.9 thou/uL (1.40-6.50); %Basophils 0.4 % (0.0-1.0); %Eosinophils 0.5 % (0.0-10.0); %Lymphocytes 9.6 % (21.0-51.0); %Monocytes 10.4 % (0.0-10.0); Hemoglobin 14.8 g/dL (14.0-18.0); Mean Corpuscular Hemoglobin 28.8 pg (27.0-31.0); Mean Corpuscular Volume 92.7 fl (78.0-98.0); Mean Platelet Volume 7.3 fL (7.4-10.4); Platelet Count 204 10x3/uL (130-400); RBC Distribution Width 11.2 % (11.5-14.5); Red Blood Cell (RBC) Count 5.15 mill/uL (4.70-6.10); White Blood Cell (WBC) Count 11.2 10x3/uL (4.8-10.8)
[2022-04-22 04:53] LABS: ALT (SGPT) 149 U/L (8-55); AST (SGOT) 37 U/L (5-34); Albumin 3.3 g/dL (3.5-5.0); Alkaline Phosphatase 89 U/L (40-110); Anion Gap 12 mmol/L (10-20); BUN (Urea Nitrogen) 20 mg/dL (8.4-25.7); Bilirubin, Total 0.7 mg/dL (0.2-1.2); Calc. Creatinine Clearance 154 mL/min (70-130); Calcium 10.2 mg/dL (7.8-10.44); Carbon Dioxide 37 mmol/L (22-29); Chloride 95 mmol/L (98-107); Estimated GFR 115; Globulin 2.8 g/dL (2.4-3.5); Glucose 139 mg/dL (70-105); Potassium 4.4 mmol/L (3.5-5.1); Protein, Total 6.1 g/dL (6.0-8.3); Sodium 140 mmol/L (136-145)
[2022-04-22] MEDS: Mometasone 100 MCG/Formoterol 5 MCG 120 PUFF INHALER INH SCH ×2 (07:00→19:21)
[2022-04-22] MEDS: Multivit, Therapeutic 1 TAB PO SCH (08:59)
[2022-04-22] MEDS: Amlodipine 10 MG TAB PO SCH (08:59)
[2022-04-22] MEDS: Hydrochlorothiazide 25 MG TAB PO SCH (08:59)
[2022-04-22] MEDS: Folic Acid 1 MG TAB PO SCH (08:59)
[2022-04-22] MEDS: methylPREDNISolone Sod Succ 40 MG VIAL IVP SCH ×2 (09:00→20:40)
[2022-04-22] MEDS: Enoxaparin Sodium 40 MG/0.4 ML SYRINGE SC SCH (09:00)
[2022-04-22] MEDS: Thiamine 100 MG TAB PO SCH (14:44)
[2022-04-22] MEDS: Nicotine 21 MG PATCH TD SCH (14:44)
[2022-04-23] MEDS: Mometasone 100 MCG/Formoterol 5 MCG 120 PUFF INHALER INH SCH ×2 (08:02→19:11)
[2022-04-23 08:08] VITALS: TEMP 98.5
[2022-04-23] MEDS: Folic Acid 1 MG TAB PO SCH (09:12)
[2022-04-23] MEDS: Enoxaparin Sodium 40 MG/0.4 ML SYRINGE SC SCH (09:12)
[2022-04-23] MEDS: Amlodipine 10 MG TAB PO SCH (09:12)
[2022-04-23] MEDS: Hydrochlorothiazide 25 MG TAB PO SCH (09:12)
[2022-04-23] MEDS: methylPREDNISolone Sod Succ 40 MG VIAL IVP SCH (09:12)
[2022-04-23] MEDS: Multivit, Therapeutic 1 TAB PO SCH (09:12)
[2022-04-23 12:43] VITALS: BP 118/76
[2022-04-23] MEDS: Nicotine 21 MG PATCH TD SCH (17:26)
[2022-04-23] MEDS: Thiamine 100 MG TAB PO SCH (17:26)
== END 2022-04-23 17:40 | disposition home or self-care (01) | DRG 207 ==
LOC: EDBD 06:10 → ERS 06:10 → ERHOLD 08:27 → IMCU/EMU 10:41 → CCU 04-15 02:12 → IMCU/EMU 04-22 15:40
PROVIDERS: ADMIT Family Medicine; ATTEND Family Medicine
PROC: 5A1955Z Respiratory Ventilation, Greater than 96 Consecutive Hours (ICD-10-PCS; principal; 2022-04-16)
PROC: 0BH17EZ Insertion of Endotracheal Airway into Trachea, Via Natural or Artificial Opening (ICD-10-PCS; 2022-04-16)
DX: J44.1 Chronic obstructive pulmonary disease with (acute) exacerbation (principal); J12.89 Other viral pneumonia; J96.01 Acute respiratory failure with hypoxia; J96.02 Acute respiratory failure with hypercapnia; I46.9 Cardiac arrest, cause unspecified; G93.41 Metabolic encephalopathy; E87.20 Acidosis, unspecified; J44.0 Chronic obstructive pulmonary disease with (acute) lower respiratory infection; Z20.822 Contact with and (suspected) exposure to COVID-19; F12.10 Cannabis abuse, uncomplicated; F17.210 Nicotine dependence, cigarettes, uncomplicated; B97.89 Other viral agents as the cause of diseases classified elsewhere; R73.9 Hyperglycemia, unspecified; T38.0X5A Adverse effect of glucocorticoids and synthetic analogues, initial encounter; R00.1 Bradycardia, unspecified; Z79.51 Long term (current) use of inhaled steroids; Z79.890 Hormone replacement therapy
CPT/HCPCS: 36415; 36416; 36600; 51702; 71045; 80053; 80202; 80306; 81003; 82248; 82805; 83036; 83605; 83735; 83880; 84100; 84145; 84484; 85025; 86780; 87040; 87633; 87811; 93005; 93010; 93306; 94002; 94003; 94640; 94660; 96365; 96375; C9113; J0171; J0456; J0696; J1650; J1815; J1940; J2060; J2250; J2704; J2920; J2930; J3010; J3370; J3411; J3475; J3490; J7030; J7050; J7120; J7611; J7620